=== PATIENT | male | born 1995 | race Caucasian/White ===

== ENCOUNTER 2023-06-23 16:14 | Emergency (ER) | payer OTHER ==
[~2023-06-23] VITALS: Ht 162.6 cm; Wt 72.6 kg
[2023-06-23 16:30] VITALS: BP 1102/73
[2023-06-23] MEDS ORDERED: Vistaril25 MG PO (17:50)
== END 2023-06-23 18:00 | disposition home or self-care (01) ==
LOC: ER 16:14
DX: F41.9 Anxiety disorder, unspecified (principal)
CPT/HCPCS: A9270

== ENCOUNTER 2023-08-01 12:23 | Emergency (ER) | payer OTHER ==
[~2023-08-01] VITALS: Ht 165.1 cm; Wt 81.7 kg
[~2023-08-01 12:23] MED LIST: Vistaril25 MG PO; Vistaril50 MG PO
[2023-08-01 16:21] VITALS: BP 124/69
== END 2023-08-01 17:05 | disposition home or self-care (01) ==
LOC: ER 12:23
DX: R51.9 Headache, unspecified (principal); F41.9 Anxiety disorder, unspecified; W18.30XA Fall on same level, unspecified, initial encounter
CPT/HCPCS: 70450; 71046; 93005; 93010; 99284-25; A9270

== ENCOUNTER 2023-09-02 13:32 | Observation (INO) | payer OTHER ==
[~2023-09-02] VITALS: Ht 165.1 cm; Wt 77.1 kg
[2023-09-02] MEDS ORDERED: ESCITALOPRAM OX10 M1 PO (14:38)
[2023-09-02 14:39] LABS: BASOPHILS ABSOLUTE AUTO 0.03 K/mm3 (0.00-0.23); BASOPHILS PERCENT AUTO 0 % (0-2); EOSINOPHILS ABSOLUTE AUTO 0.02 K/mm3 (0.00-0.68); EOSINOPHILS PERCENT AUTO 0 % (0-6); Hematocrit 44.5 % (37.0-53.0); Hemoglobin 15.3 g/dL (13.5-17.5); IMMATURE GRAN ABSOLUTE AUTO 0.07 K/mm3 (0.00-0.10); IMMATURE GRAN PERCENT AUTO 1 % (0-1); LYMPHOCYTES ABSOLUTE AUTO 2.09 K/mm3 (0.84-5.20); LYMPHOCYTES PERCENT AUTO 16 % (21-46); MONOCYTES ABSOLUTE AUTO 0.76 K/mm3 (0.16-1.47); MONOCYTES PERCENT AUTO 6 % (4-13); Mean Corpuscular HGB 30.1 pg (26.0-34.0); Mean Corpuscular HGB Conc 34.4 g/dL (31.5-36.5); Mean Corpuscular Volume 87 fL (80-100); Mean Platelet Volume 9.6 fL (9.1-12.4); NEUTROPHILS ABSOLUTE AUTO 9.77 K/mm3 (1.96-9.15); NEUTROPHILS PERCENT AUTO 77 % (41-73); Platelet Count 284 K/mm3 (150-400); RDW Standard Deviation 38.8 fL (35.1-46.3); Red Blood Cell Count 5.09 M/mm3 (4.30-5.90); White Blood Cell Count 12.74 K/mm3 (4.00-11.30)
[2023-09-02 15:02] LABS: Salicylate <1.7 mg/dL (2.8-20.0)
[2023-09-02 15:05] LABS: Acetaminophen, Random <2.0 ug/mL (10.0-30.0); Alanine Aminotransfer (ALT/SGP 62 U/L (12-78); Albumin, Blood 4.2 g/dL (3.4-5.0); Albumin/Globulin Ratio 1.3 (0.8-1.8); Alk Phos 68 U/L (50-136); Anion Gap 4 mmol/L (6-16); Aspartate Aminotrans (AST/SGOT 18 U/L (12-37); Bilirubin, Total 0.5 mg/dL (0.1-1.0); Blood Urea Nitrogen 11 mg/dL (8-24); CO2, Blood 26 mmol/L (21-32); Calcium, Blood 9.1 mg/dL (8.5-10.1); Chloride, Blood 108 mmol/L (98-108); Creatinine, Blood 0.85 mg/dL (0.60-1.20); Ethanol (Alcohol), Blood, Med <3 mg/dL; Globulin, Blood 3.3 g/dL (2.2-4.0); Glomerular Filtration Rate 123 (60-); Glucose, Blood 132 mg/dL (70-99); Potassium, Blood 3.5 mmol/L (3.5-5.5); Sodium, Blood 138 mmol/L (136-145); Total Protein, Blood 7.5 g/dL (6.4-8.2)
[2023-09-02 15:50] LABS: Source, Urine Clean Catch
[2023-09-02 15:56] LABS: Appearance, Urine Clear (Clear); Bilirubin, Urine Neg (Neg); Blood, Urine Neg (Neg); Color, Urine Yellow (P-Yellow); Glucose Qualitative, Urine Neg (Neg); Ketones, Urine 3+ (Neg); Leukocyte Esterase, Urine 1+ (Neg); Nitrite, Urine Neg (Neg); Protein, Urine Neg (Neg); Urobilinogen, Urine NORM (Normal)
[2023-09-02 16:10] LABS: Amorphous Light (0-Heavy)
[2023-09-02 16:11] LABS: Bacteria Few /hpf; Red Blood Cells, Urine 0-2 /hpf (0-2); Squamous Epithelial Cells Not Seen /hpf (Few)
[2023-09-02 16:40] LABS: U Amphetamine Screen Not Detected; U Barbituate Screen Not Detected; U Benzodiazapine Screen Not Detected; U Buprenorphine Screen Not Detected; U Cannabinoids Screen DETECTED; U Cocaine Screen Not Detected; U Methadone Screen Not Detected; U Methamphetamine Screen Not Detected; U Opiates Screen Not Detected; U Oxycodone Screen Not Detected; U Phencyclidine Screen Not Detected; U Propoxyphene Screen Not Detected
[2023-09-03 06:55] LABS: Cholesterol 232 mg/dL (50-200); HDL Cholesterol 46 mg/dL (>39); LDL/HDL RATIO 3.6; Low Density Lipoprotein Chol 166 mg/dL (0-110); Triglycerides 99 mg/dL (30-140); Very Low Density Lipoprot Chol 19 mg/dL (6-28)
[2023-09-03 10:15] VITALS: BP 131/87
== END 2023-09-03 12:15 ==
LOC: ER 13:32 → EOR 13:33
PROVIDERS: Physician Assistant; Student in an Organized Health Care Education/Training Program; ADMIT Emergency Medicine
DX: R45.851 Suicidal ideations (principal); F31.81 Bipolar II disorder; F12.99 Cannabis use, unspecified with unspecified cannabis-induced disorder
CPT/HCPCS: 80053; 80061; 81001; 83036; 85025; 87086; 99285-25; A9270; G0378; G0480